=== PATIENT | male | born 1990 ===

== ENCOUNTER 2017-02-07 12:24 | Emergency (ER) | payer SELFPAY ==
[2017-02-07 12:33] VITALS: BP 127/60; PULSE 71; RESP 16; TEMP 98.3; O2SAT 97
[2017-02-07] MEDS ORDERED: ceFAZolin 1 GM in Sodium Chloride 0.9% 100 ML IVPB STA (13:03)
--- NOTE | 2017-02-07 13:42 | ED PDOC ---
Upper Extremity Pain/Injury Time Seen by Provider: 02/07/17 12:41 Chief Complaint (Nursing): Finger,Hand,&Wrist Chief Complaint (Provider): hand pain History Per: Patient History/Exam Limitations: no limitations Additional Complaint(s): 26y F in Ed for eval of right hand injury sustained last week after cut to 3rd DIP by a piece of metal , did not however come to an ER for suture repair. pt now has noted swelling and pus drainage from non-healed wound. states he notes swelling, redness, drainage and pain, but has FROM of finger denies fever chills nausea or vomiting. Past Medical History Reviewed: Historical Data, Nursing Documentation, Vital Signs Vital Signs: Last Vital Signs Temp 98.3 F 02/07/17 12:30 Pulse 71 02/07/17 12:30 Resp 16 02/07/17 12:30 BP 127/60 02/07/17 12:30 Pulse Ox 97 02/07/17 12:30 - Medical History PMH: No Chronic Diseases - Family History Family History: States: No Known Family Hx - Home Medications Home Medications: Ambulatory Orders Medication Instructions Recorded Cephalexin [cephalexin] 500 mg PO BID #20 cap 02/07/17 Clindamycin [Cleocin] 300 mg PO TID #30 cap 02/07/17 - Allergies Allergies/Adverse Reactions: Allergies Allergy/AdvReac Type Severity Reaction Status Date / Time No Known Allergies Allergy Verified 02/07/17 12:33 Review of Systems ROS Statement: Except As Marked, All Systems Reviewed And Found Negative Musculoskeletal: Positive for: Hand Pain Physical Exam - Reviewed Nursing Documentation Reviewed: Yes Vital Signs Reviewed: Yes - Physical Exam Appears: Positive for: Well, Non-toxic, No Acute Distress Skin: Positive for: Normal Color, Warm, DRY Cardiovascular/Chest: Positive for: Regular Rate, Rhythm Respiratory: Positive for: CNT, Normal Breath Sounds Extremity: Positive for: Other (right hand: swelling to 3rd DIP at area of wound dehscience with drainage, tenderness, pain. FROM noted to digit. ) Neurologic/Psych: Positive for: Oriented - Laboratory Results Result Diagrams: 02/07/17 14:00 02/07/17 14:00 - ECG O2 Sat by Pulse Oximetry: 97 - Radiology X-Ray: Interpreted by Me (soft tissue swelling, no evidence of gas. ) - Progress ED Course And Treament: due to proximity of infection to joint space and concern for tendon involvement will get IV andef, cbc/cmp/and xray Medical Decision Making Medical Decision Making: labs are unremarkable. pt advised to use warm cmopress daily, f/u with hand surgeon and continue abx PO tx. if with inablity to range finger fever or chills to return to ER stable Vs upon d.c Disposition - Clinical Impression Clinical Impression: Abscess of finger, Wound dehiscence - Patient ED Disposition Is Patient to be Admitted: No Counseled Patient/Family Regarding: Studies Performed, Diagnosis, Need For Followup, Rx Given - Disposition Referrals: [facility] [Outside] [facility] [Outside] [facility] [Outside] Yumiko Nolasco MD [Staff Provider] - Johnny Cronin MD [Medical Doctor] - Disposition: Routine/Home Disposition Time: 14:45 Condition: STABLE Additional Instructions: use warm compress at least 3-4 times daily. follow up with a hand surgeon or wound clinic. Prescriptions: Cephalexin [cephalexin] 500 mg PO BID #20 cap Clindamycin [Cleocin] 300 mg PO TID #30 cap Instructions: Abscess (ED) Forms: [facility] ED School/Work Excuse
[2017-02-07 14:18] LABS: BASO % 0.7 % (0.0-2.0); EOS # 0.2 K/uL (0.0-0.7); EOS % 2.5 % (0.0-4.0); HEMOGLOBIN 15.6 g/dL (12.0-18.0); LYMPH # 1.8 K/uL (1.0-4.3); LYMPH % 27.6 % (20.0-40.0); MEAN CELL VOLUME 92.2 fl (80.0-94.0); MEAN CORPUSCULAR HEMOGLOBIN 31.1 pg (27.0-31.0); MEAN CORPUSCULAR HGB CONC 33.7 g/dL (33.0-37.0); MEAN PLATELET VOLUME 9.8 fl (7.2-11.7); MONO # 0.7 K/uL (0.0-0.8); MONO % 11.1 % (0.0-10.0); NEUT # 3.7 K/uL (1.8-7.0); NEUT % 58.1 % (50.0-75.0); RBC 5.04 Mil/uL (4.40-5.90); RED CELL DISTRIBUTION WIDTH 13.2 % (11.5-14.5); WHITE BLOOD COUNT 6.4 K/uL (4.8-10.8)
[2017-02-07 14:23] LABS: ALB/GLOB RATIO 1.7 (1.0-2.1); ALBUMIN 4.2 g/dL (3.5-5.0); ALT/SGPT 36 U/L (21-72); AST/SGOT 28 U/L (17-59); BLOOD UREA NITROGEN 15 mg/dl (9-20); CALCIUM 9.6 mg/dL (8.4-10.2); GFR AFRICAN-AMERICAN > 60; GFR NON-AFRICAN AMERICAN > 60
--- NOTE | 2017-02-07 15:07 | RAD ---
PROCEDURE: Right Hand Radiographs. HISTORY: finger swelling COMPARISON: No prior study available for comparison. FINDINGS: BONES: No evidence of acute displaced fracture nor dislocation. No obvious cortical destructive changes. JOINTS: Joint spaces preserved. No significant osteoarthritis SOFT TISSUES: In situ ETT, the tip of which appears to lie just within the proximal right mainstem bronchus at and should be withdrawn. NGT, right IJ central venous line right-sided PICC line again noted. Pulmonary vascular congestive changes with bilateral infiltrates and bilateral effusions. OTHER FINDINGS: None. IMPRESSION: In situ ETT, the tip of which appears to lie just within the proximal right mainstem bronchus at and should be withdrawn. NGT, right IJ central venous line right-sided PICC line again noted. Pulmonary vascular congestive changes with bilateral infiltrates and bilateral effusions.
== END 2017-02-07 15:21 | disposition home or self-care (01) ==
LOC: H.ER 12:24
DX: L02.519 Cutaneous abscess of unspecified hand (principal); T81.31XA Disruption of external operation (surgical) wound, not elsewhere classified, initial encounter
CPT/HCPCS: 73130; 80053; 85025; 87040; 96365; 99283; J0690